=== PATIENT | female | born 1995 | race Caucasian/White ===

== ENCOUNTER 2025-04-30 12:10 | Emergency (ER) | payer OTHER, SELFPAY ==
[2025-04-30 12:13] VITALS: BP 137/100
[2025-04-30 12:42] LABS: Hematocrit 41.9 % (37.0-47.0); Hemoglobin 14.4 g/dL (12.0-16.0); Mean Corp Hgb Conc. 34.4 g/dL (33.0-37.0); Mean Corpuscular Volume 83.0 fL (81.0-99.0); Nucleated Red Blood Cells % 0 %; Platelet Count 278 10^3/uL (130-400); Red Cell Dist. Width 12.3 % (11.5-14.5)
[2025-04-30 13:19] LABS: ALT (SGPT) 18 U/L (0-35); AST (SGOT) 19 U/L (14-36); Albumin 5.1 g/dl (3.5-5.0); Alkaline Phosphatase 59 U/L (38-126); Blood Urea Nitrogen 6 mg/dl (7-17); Calcium 10.4 mg/dl (8.4-10.2); Carbon Dioxide 24 mmol/L (22-30); Chloride 105 mmol/L (98-107); Glucose 124 mg/dl (70-99); HCG, Serum Qualitative Screen Negative; Potassium 4.4 mmol/L (3.5-5.1); Sodium 140 mmol/L (135-145); Total Protein 8.5 g/dl (6.3-8.2); eGFR > 60.00
[2025-04-30 14:09] VITALS: BP 128/87
--- NOTE | 2025-04-30 15:18 | ED.GENMED ---
History of Present Illness
General
Chief Complaint: Anxiety
Source: patient
Exam Limitations: none
Time Seen by Provider: 04/30/25 15:16
Nursing documentation reviewed up to this point in time: agreed with
History of Present Illness
History of Present Illness:
The patient is a pleasant 29-year-old female with a past medical history of panic attacks and anxiety, who reports 1 week of increased anxiety and difficulty sleeping due to waking up with palpitations and anxiety. Patient reports that she feels
part of the trigger is the fact that her partner has been away so she is home alone. Patient reports she takes 20 mg of Lexapro and uses Restoril as needed for anxiety, however, she reports the Restoril is not improving her anxiety. Patient
reports that she has been experiencing tightness in her chest. She denies a history of PE and DVT. Additionally, patient reports she has been placed on 2 stimulant medications (phentermine and another stimulant weight loss med)for weight loss.
She started taking these 2 medications this past February. Patient also reports she recently stopped using marijuana, which may be causing her anxiety to become worse as well. Patient reports no suicidal or homicidal thoughts. Patient reports she
feels hopeful that she could feel better. Patient reports that she has seen a therapist in the past that she could call for follow-up
Past History
Past History
ED Past Medical History: Psychiatric
ED Past Surgical History: None
Social History
Tobacco: Non-smoker
Alcohol: Other
Drug: Marijuana
Personal: Partner
Living: other (with partner)
Employment: Employed
Family History
Family History: Other
Review of Systems
Review of Systems
Allergies reviewed?: Yes
All Other Systems: ROS reviewed and negative except as documented in HPI and ROS
Constitutional: Reports sleep disturbance
EENT: Reports no symptoms
Respiratory: Reports no symptoms
Cardiac: Reports chest pain and palpitations
ABD/GI: Reports no symptoms
: Reports no symptoms
Musculoskeletal: Reports no symptoms
Skin: Reports no symptoms
Neurological: Reports no symptoms
Endocrine: Reports no symptoms
Hematologic/Lymphatic: Reports no symptoms
Psychiatric: Reports anxiety
Phy Exam
Physical Exam
Physical Exam:
Physical Exam
General: no apparent distress, not acutely ill
Neck: supple. no meningeal signs. normal posterior pharynx
Heart: s1/s2 regular rate and rhythm, no murmur. equal radial pulses.
Lungs: no acute respiratory distress. clear bilaterally
Abdomen: normal bowel sounds. not tender. no CVAT
Neuro: alert and oriented. no focal neurological deficits
Skin: no rash
Psychiatric: well kept. interactive and cooperative
Extremities: no edema. no calf tenderness. negative homans. good distal pulses
Course
Orders/Labs/Results
Orders:
Orders
04/30/25 12:15
Electrocardiogram (*1) Urgent
Reason for Study: Chest Pain
EKG- Treatment ONCE
Test Result ONCE
04/30/25 12:31
Complete Blood Count/With Diff Urgent
Comprehensive Metabolic Panel Urgent
HCG, Serum Qualitative Screen Urgent
TSH Urgent
Comment: ADD ON
04/30/25 15:45
Alprazolam [Xanax] 0.5 mg PO NOW STA
04/30/25 15:46
Add On- LAB Urgent
Tests Added?: TSH
04/30/25 15:53
Troponin I Urgent
Abnormal Lab Results
04/30/25
12:31
WBC 11.2 H 10^3/uL
(4.8-10.8)
MPV 12.1 H fL
(7.4-10.4)
Absolute Neuts (auto) 9.5 H 10^3/uL
(1.4-6.5)
Absolute Lymphs (auto) 1.1 L 10^3/uL
(1.2-3.4)
Neutrophils % 84.7 H %
(42.2-75.2)
Lymphocytes % 10.2 L %
(20.5-51.1)
BUN 6 L mg/dl
(7-17)
Creatinine 0.5 L mg/dL
(0.6-1.0)
Glucose 124 H mg/dl
(70-99)
Calcium 10.4 H mg/dl
(8.4-10.2)
Total Protein 8.5 H g/dl
(6.3-8.2)
Albumin 5.1 H g/dl
(3.5-5.0)
04/30/25 12:31
04/30/25 12:31
Vital Signs
Initial and Last Documented VS:
Initial Vital Signs
Temp Pulse Resp BP Pulse Ox
99.1 F 97 18 137/100 96
04/30/25 12:13 04/30/25 12:13 04/30/25 12:13 04/30/25 12:13 04/30/25 12:13
Last Documented Vital Signs
Temp Pulse Resp BP Pulse Ox
99.1 F 82 18 138/86 97
04/30/25 12:13 04/30/25 16:16 04/30/25 16:16 04/30/25 16:16 04/30/25 16:16
MDM/Problems Addressed
Differential Diagnosis Includes:
Acute on chronic anxiety, acute on chronic panic attacks, hypothyroidism, cardiac arrhythmia
MDM/Problems Addressed:
Patient presents with feelings of acute anxiety, palpitations and chest pain
Chronic conditions affecting care: Psychiatric illness
Acute Exacerbation and/or Progression of Chronic Illness:
Patient likely has acute exacerbation of panic attacks and anxiety
Acute Exacerbation and/or Progression of Chronic Illness: Psychiatric illness
*Pulse Oximetry
SaO2: 99
Oxygen Mode of Delivery: Room air
Patient hypoxic: no
Comment: 99% on room air. Not hypoxic
*EKG
Interpreted by ED Provider?: Yes
Interpretation: normal
Comparison EKG: no comparison EKG present
Rate: normal
Rhythm: sinus
[place]: normal axis
Interval: normal interval
QRS Pattern: normal QRS
Ischemia: no ischemia
*Bulldozer Mechanic Interpretation
Rate: Bulldozer Mechanic- N/A
*Critical Care Note
Total Time (30-74mins, 75-104mins- exclusive of procedures): Not Applicable
Data Reviewed
Source: patient and family
Patient Management
Social determinants of health affecting care: Living situation and Strong social support
Escalation/DeEscalation of care consider admission/obs:
Patient has support of her mother and her partner will return shortly. Patient is extremely hopeful. She reports she has a therapist she could call for follow-up. She is agreeable to stopping the weight loss medication. Additionally, she is
adamant that she is not suicidal or homicidal. She seems calm, relaxed after the Xanax and very willing to get help with her therapist.
[facility] did observe her as I was taking a history and doing a physical exam. They did give her resources in case her therapist was not available.
ED Attending Note
-
Portions of this chart may have been created with voice recognition software.� Occasional wrong word or��sound alike� substitutions may have occurred due to the inherent limitations of voice recognition software.
Discharge Plan
Departure
Patient Disposition: Home (Routine Discharge)
Date of Disposition: 04/30/25
Time of Disposition: 18:05
Patient with high blood pressure during this ER visit?: Yes
Condition: Good
Covid-19: Not Applicable
Discharge Problem:
Acute anxiety
Instructions: Anxiety, Adult (DC), BLOOD PRESSURE
Prescriptions:
New
alprazolam [Xanax] 0.5 mg tablet
0.5 mg PO BID PRN (Reason: anxiety) Qty: 10 0RF
No Action
escitalopram oxalate [Lexapro] 20 mg Tablet
20 mg PO DAILY
phentermine
PO DAILY
Referrals:
Abdifatah Leger DO [Family Provider, Family Practice]
Activity Restrictions/Additional Instructions:
Stop taking all of your weight loss medication. Please call your therapist for follow-up.
Use the Xanax only as needed for acute anxiety.
Interventions
Interventions:
*Risk Screen - Suicide Last Done: 04/30/25 12:13
*General Assessment Last Done: 04/30/25 12:13
*Neglect/Abuse Screening Last Done: 04/30/25 12:13
*ED- Fall Risk Assessment Last Done: 04/30/25 16:00
*ED COVID-19 Vaccine History Last Done: 04/30/25 15:59
XB-Kjqqtz-Qsmdmunvbk Assessment Last Done: 04/30/25 15:59
ED-Psychological Assessment Last Done: 04/30/25 15:59
Discharge Date and Time
Print Language: YI
[2025-04-30] MEDS: XANAX 0.5 MG PO (15:56)
[2025-04-30 16:16] VITALS: BP 138/86
[2025-04-30 16:26] LABS: Troponin I < 0.012 ng/ml
[2025-04-30 17:35] LABS: TSH 0.65 uIU/ml (0.47-4.68)
== END 2025-04-30 18:15 | disposition home or self-care (01) ==
LOC: EMR 12:10
PROVIDERS: Emergency Medicine; EMERGENCY PHYSICIAN Emergency Medicine; FAMILY PHYSICIAN Family Medicine
DX: F41.9 Anxiety disorder, unspecified (principal); R00.2 Palpitations
CPT/HCPCS: 99283; 80053; 84443; 84484; 84703; 85025; 93005